=== PATIENT | male | born 1970 | race Hispanic/Latino ===

== ENCOUNTER 2019-09-05 11:53 | Day surgery (SDC) | payer BC ==
[2019-09-04 14:20] VITALS: BMI 23.8
[~2019-09-05 11:53] MED LIST: Cyclopentolate 1% Opth Drop 2 ML BOT R EYE SCH; EPINEPHrine 0.3 MG in Ophthalmic Irrigation Solution 500 ML FS SCH; Fentanyl 100 MCG/2 ML VIAL ONE; Midazolam HCl 2 mg/2 ml Vial ONE; PROPOFOL 20 ML ONE; Phenylephrine 2.5% Ophth Soln 5 ML BOT R EYE SCH
[2019-09-05] MEDS ORDERED: Cyclopentolate 1% Opth Drop 2 ML BOT ONE (13:21)
[2019-09-05] MEDS ORDERED: Phenylephrine 2.5% Ophth Soln 5 ML BOT ONE (13:21)
[2019-09-05] MEDS ORDERED: Maxitrol 0.1% Opth Oint 3.5 GM TUBE ONE (13:28)
[2019-09-05] MEDS ORDERED: PROPOFOL 200 MG/20 ML VIAL ONE (13:28)
[2019-09-05] MEDS ORDERED: Triamcinolone 40 MG/ML VIAL ONE (13:28)
[2019-09-05] MEDS ORDERED: Lidocaine 4% PF 5 ML AMP ONE (13:28)
[2019-09-05] MEDS ORDERED: Bupivacaine PF 0.75% SDV 10 ML ONE (13:28)
--- NOTE | 2019-09-05 15:47 | OP ---
DATE OF PROCEDURE: 09/05/2019 PRINCIPAL PREOPERATIVE DIAGNOSIS: Vitreous hemorrhage, right eye. POSTOPERATIVE DIAGNOSIS: Vitreous hemorrhage, right eye. NAME OF PROCEDURES PERFORMED: 1. 25-gauge pars plana vitrectomy, right eye. 2. Endo cautery, right eye. ESTIMATED BLOOD LOSS: None. SPECIMENS REMOVED: None. COMPLICATIONS: None. ANESTHESIA: MAC with retrobulbar block. SUMMARY OF THE OPERATION: The patient was identified in the preoperative holding area, where the correct eye being the right eye was marked for surgery. The patient was taken to the operating room, where MAC anesthesia was induced. A retrobulbar block was administered to the right eye. The block consisted of 1:1 ratio of 4% lidocaine and 0.75% Marcaine. A total of 5 mL was administered. The right eye was then prepped and draped in the usual sterile ophthalmic fashion for surgery. A wire lid speculum was placed. A standard 25-gauge pars plana vitrectomy platform was fashioned with trocars placed approximately 4 mm from the limbus. The infusion was noted to be within the vitreous cavity prior to being turned on to an infusion pressure of 30 mmHg. The light pipe and micro vitrector were introduced in the eye under visualization of the BIOM viewing system. A dense vitreous hemorrhage was noted, obscuring the view of the fundus. A careful core and peripheral shave vitrectomy were performed, which allowed for complete clearance of the vitreous hemorrhage. An old horseshoe tear was noted at approximately 10 o'clock with good surrounding barricade layer. A bridging vessel was noted across this defect. This vessel was the likely spot of the vitreous hemorrhage. This bridging vessel was cauterized with the use of endo cautery. A 360-degree scleral depressed exam of the periphery revealed no other defects. The cannulas were sequentially removed and all sclerotomies were sutured with 8-0 Vicryl suture. Following suturing, all sclerotomies were noted to be watertight. Subconjunctival Ancef and Kenalog were injected. The wire lid speculum was removed followed by application of TobraDex ophthalmic ointment and a light patch and shield. The patient tolerated the procedure well and was taken to outpatient recovery area in good condition. Job ID: [id number]
[2019-09-05] MEDS ORDERED: HYDROcodone/Acetaminophen 5/325 mg Tablet ONE (15:52)
== END 2019-09-05 17:19 | disposition home or self-care (01) ==
LOC: SDC 11:53
PROVIDERS: ATTEND Ophthalmology Retina Specialist
PROC: 08T43ZZ Resection of Right Vitreous, Percutaneous Approach (ICD-10-PCS; principal; 2019-09-05)
DX: H43.11 Vitreous hemorrhage, right eye (principal); Z87.891 Personal history of nicotine dependence; Z88.6 Allergy status to analgesic agent
CPT/HCPCS: J0171; J2001; J2250; J2704; J3010; J3301; J3490